=== PATIENT | male | born 1955 | race Caucasian/White ===

== ENCOUNTER 2017-10-15 06:23 | Day surgery (SDC) | payer OTHER ==
[2017-10-15] MEDS ORDERED: CIPRO 400 MG/200 ML D5W IVPB (07:00)
[2017-10-15] MEDS ORDERED: ONDANSETRON 4 MG INJ (07:00)
[2017-10-15] MEDS ORDERED: DEXAMETHASONE 4 MG/ML 1 ML INJ (07:00)
[2017-10-15] MEDS ORDERED: MIDAZOLAM 1 MG/ML 2 ML INJ (07:26)
[2017-10-15] MEDS ORDERED: FENTAnyl 50 MCG/ML VIAL (07:26)
[2017-10-15] MEDS ORDERED: PROPOFOL 20 ML (07:26)
[2017-10-15] MEDS ORDERED: LIDOCAINE 2% (SDV) 5 ML INJ (07:26)
[2017-10-15] MEDS ORDERED: METOCLOPRAMIDE 10 MG INJ (07:26)
[2017-10-15] MEDS ORDERED: IOHEXOL 300MG/ML 30 ML BTL (07:30)
[2017-10-15] MEDS ORDERED: PHENYLephrine (100 MCG/ML) 5ML SYG (07:55)
[2017-10-15] MEDS ORDERED: FUROSEMIDE 20 MG INJ (08:02)
[2017-10-15] MEDS ORDERED: ACETAMINOPHEN 1000MG/100ML IV 100 ML (08:22)
[2017-10-15] MEDS ORDERED: FENTAnyl 50 MCG/ML VIAL IV ×2 (09:00)
[2017-10-15] MEDS ORDERED: ONDANSETRON 4 MG INJ IV (09:00)
[2017-10-15] MEDS ORDERED: HYDROmorphONE 1 MG/5 ML IV SYRINGE IV ×2 (09:00)
[2017-10-15] MEDS ORDERED: DIPHENHYDRAMINE 50 MG INJ IV (09:00)
[2017-10-15] MEDS ORDERED: hydrALAzine 20 MG INJ IV (09:00)
[2017-10-15] MEDS ORDERED: IPRATROPIUM (NEB) 0.5 MG/2.5 ML AMP HHN (09:00)
[2017-10-15] MEDS ORDERED: LABETALOL HCL 20MG INJ IV (09:00)
[2017-10-15] MEDS ORDERED: MEPERIDINE 25 MG INJ IV (09:00)
== END 2017-10-15 10:40 | disposition home or self-care (01) ==
LOC: SDS 06:23
DX: R31.29 Other microscopic hematuria (principal); N40.0 Benign prostatic hyperplasia without lower urinary tract symptoms; E11.9 Type 2 diabetes mellitus without complications; I10 Essential (primary) hypertension
CPT/HCPCS: 52204; 82962; 88104; 88305; 88341; 88342

== ENCOUNTER 2017-12-03 10:20 | Day surgery (SDC) | payer OTHER ==
[~2017-12-03 10:20] MED LIST: CIPROFLOXACIN 400MG/D5W 200 ML IVPB
[2017-12-03 11:20] LABS: ADD MAN DIFF? NO
[2017-12-03 11:22] LABS: WHITE BLOOD COUNT 7.3 10^3/ul (4.8-10.8)
[2017-12-03 11:22] LABS: BASOPHILS % 0.5 % (0.0-2.0); EOSINOPHILS # 0.1 10^3/ul (0.0-0.5); EOSINOPHILS % 1.8 % (0.0-7.0); HEMATOCRIT 40.7 % (42.0-52.0); LYMPHOCYTES # 1.9 10^3/ul (0.8-2.9); MEAN CORPUSCULAR HGB CONC 34.4 g/dl (32.0-37.0); MEAN CORPUSCULAR VOLUME 90.2 fl (82.0-101.0); MEAN PLATELET VOLUME 10.7 fl (7.4-10.4); MONOCYTE # 0.7 10^3/ul (0.3-0.9); NEUTROPHIL # 4.6 10^3/ul (1.6-7.5); NEUTROPHILS % 62.4 % (39.0-77.0); PLATELET COUNT 280 10^3/UL (140-415); RED BLOOD COUNT 4.51 10^6/ul (4.70-6.10); RED CELL DISTRIBUTION WIDTH 12.5 % (11.5-14.5)
[2017-12-03 11:41] LABS: INR 0.97
[2017-12-03 11:42] LABS: PARTIAL THROMBOPLASTIN TIME 27.3 Sec (25.0-35.0)
[2017-12-03 11:43] LABS: ALANINE AMINOTRANSFERASE 20 IU/L (13-69); ALBUMIN 4.1 g/dl (3.3-4.9); ALBUMIN/GLOBULIN RATIO 1.17; ALKALINE PHOSPHATASE 72 IU/L (42-121); ANION GAP 13 (8-16); ASPARTATE AMINO TRANSFERASE 27 IU/L (15-46); BILIRUBIN,INDIRECT 0.4 mg/dl (0-1.1); BILIRUBIN,TOTAL 0.4 mg/dl (0.2-1.3); BLOOD UREA NITROGEN 8 mg/dl (7-20); CALCIUM 9.3 mg/dl (8.4-10.2); CARBON DIOXIDE 27 mmol/L (21-31); CHLORIDE 100 mmol/L (97-110); GLUCOSE 174 mg/dl (70-220); POTASSIUM 4.4 mmol/L (3.5-5.1); SODIUM 136 mmol/L (135-144); TOTAL PROTEIN 7.6 g/dl (6.1-8.1)
[2017-12-03] MEDS: LACTATED RINGER'S 1,000 ML IV (11:50)
[2017-12-03 11:52] LABS: ADD UMIC NO; UR ASCORBIC ACID NEGATIVE (NEGATIVE); UR BILIRUBIN (Dip) NEGATIVE (NEGATIVE); UR BLOOD (Dip) NEGATIVE (NEGATIVE); UR CLARITY CLEAR (CLEAR); UR COLOR YELLOW (YELLOW); UR GLUCOSE (Dip) NEGATIVE (NEGATIVE); UR KETONES (Dip) NEGATIVE (NEGATIVE); UR LEUKOCYTE ESTERASE (Dip) NEGATIVE Leu/ul (NEGATIVE); UR NITRITE (Dip) NEGATIVE (NEGATIVE); UR SPECIFIC GRAVITY (Dip) 1.014 (1.003-1.030); UR TOTAL PROTEIN (Dip) NEGATIVE (NEGATIVE); UR UROBILINOGEN (Dip) NEGATIVE (NEGATIVE)
[2017-12-03] MEDS ORDERED: PROPOFOL 20 ML (14:38)
[2017-12-03] MEDS ORDERED: ROCURONIUM 50 MG INJ (14:38)
[2017-12-03] MEDS ORDERED: DEXAMETHASONE 4 MG/ML 1 ML INJ (15:01)
[2017-12-03] MEDS ORDERED: ONDANSETRON 4 MG INJ (15:03)
[2017-12-03] MEDS: IOHEXOL 300MG/ML 30 ML BTL (15:05)
[2017-12-03] MEDS ORDERED: SUGAMMADEX SODIUM 200 MG/2 ML VIAL IV (15:33)
[2017-12-03] MEDS ORDERED: HYDROmorphONE 1 MG/5 ML IV SYRINGE IV ×2 (16:00)
[2017-12-03] MEDS ORDERED: DIPHENHYDRAMINE 50 MG INJ IV (16:00)
[2017-12-03] MEDS ORDERED: ONDANSETRON 4 MG INJ IV (16:00)
[2017-12-03] MEDS ORDERED: EPHEDrine SULFATE 50 MG/5 ML SYG IV (16:00)
[2017-12-03] MEDS ORDERED: METOCLOPRAMIDE 10 MG INJ IV (16:00)
[2017-12-03] MEDS ORDERED: ALBUTEROL 0.083% (NEB) 2.5 MG/3 ML AMP HHN (16:00)
[2017-12-03] MEDS ORDERED: LABETALOL HCL 20MG INJ IV (16:00)
[2017-12-03] MEDS ORDERED: MEPERIDINE 25 MG INJ IV (16:00)
[2017-12-03] MEDS ORDERED: FENTAnyl 50 MCG/ML VIAL IV ×2 (16:00)
[2017-12-03] MEDS ORDERED: hydrALAzine 20 MG INJ IV (16:00)
[2017-12-03] MEDS ORDERED: KETOROLAC 30 MG INJ IV (16:00)
[2017-12-03] MEDS ORDERED: OXYCODONE/ACETAMINOPHEN (5/325) TAB PO ×2 (16:00)
[2017-12-03] MEDS: HYDROmorphONE 1 MG/5 ML IV SYRINGE IV (16:24)
[2017-12-03] MEDS: FENTAnyl 50 MCG/ML VIAL IV (16:26)
== END 2017-12-03 17:45 | disposition home or self-care (01) ==
LOC: SDS 10:20
DX: N40.0 Benign prostatic hyperplasia without lower urinary tract symptoms (principal); R82.8 Abnormal findings on cytological and histological examination of urine; I10 Essential (primary) hypertension; E11.9 Type 2 diabetes mellitus without complications; Z87.891 Personal history of nicotine dependence; E78.5 Hyperlipidemia, unspecified
CPT/HCPCS: 52351; 71045; 74420; 80053; 81003; 82962; 85025; 85610; 85730; 93005